=== PATIENT | female | born 1970 | race Caucasian/White ===

== ENCOUNTER 2022-03-30 13:49 | Outpatient (CLI) | payer OTHER, SELFPAY ==
--- NOTE | 2022-03-30 14:00 | CRLHL7_ITS ---
For Patients: As a result of the Century Cures Act, medical imaging exams and procedure reports are released immediately into your electronic medical record. You may view this report before your referring provider. If you have questions, please contact your health care provider. BILATERAL MAMMOGRAM WITH COMPUTER-AIDED DETECTION AND TOMOSYNTHESIS TECHNIQUE: CC and MLO views were obtained. These mammographic images have been obtained using full-field digital technique. These mammographic images were interpreted with the benefit of computer-aided detection. Breast Tomosynthesis was used in this interpretation. COMPARISON FILM: 01/06/2021, 06/29/2017, 05/13/2016. FINDINGS: There are scattered areas of fibroglandular density IMPRESSION: There is no radiographic evidence for malignancy. ASSESSMENT: BI-RADS Category 1: Negative RECOMMENDATION: Routine screening mammogram in 1 year. A lay language report of this examination will be provided to the patient. Howie Lorenzo M.D. Diagnostic Radiologist [email or web address] HORTENCIA/Dictated by: Howie Lorenzo MD @ 03/31/2022 12:55:00 PM (Electronically Signed)
== END 2022-03-30 13:50 | disposition home or self-care (01) ==
LOC: MAMMO 13:49
PROVIDERS: PCP Family Medicine; Visit Provider Family Medicine
DX: Z12.31 Encounter for screening mammogram for malignant neoplasm of breast (principal); R92.8 Other abnormal and inconclusive findings on diagnostic imaging of breast
CPT/HCPCS: 77063; 77067

== ENCOUNTER 2022-08-27 07:39 | Outpatient (CLI) | payer OTHER, SELFPAY ==
[2022-08-27 11:51] LABS: Albumin* 4.6 g/dL (3.3-5.0); Chloride* 104 mmol/L (96-114)
[2022-08-27 11:52] LABS: Potassium* 4.5 mmol/L (3.6-5.1); Sodium* 139 mmol/L (135-149)
[2022-08-27 11:54] LABS: Aspartate Amino Transferase* 32 U/L (12-35); Bilirubin Total* 0.5 mg/dL (0.1-1.5); Blood Urea Nitrogen* 17 mg/dL (7-30); Carbon Dioxide* 27 mmol/L (20-32); Cholesterol* 228 mg/dL (90-199); Creatinine* 0.6 mg/dL (0.5-1.5); Estimated Glomerular Filt Rate 108 ml/min; Total Protein* 6.9 g/dL (6.0-8.3)
[2022-08-27 11:55] LABS: Alanine Aminotransferase* 39 U/L (4-35); Alkaline Phosphatase* 79 U/L (40-150); Calcium* 8.9 mg/dL (8.4-10.6); Glucose* 102 mg/dL (60-115); HDL Cholesterol* 54 mg/dL (>=50); LDL Cholesterol Calculated 128 mg/dL (<100); Triglycerides* 231 mg/dL (40-149)
== END 2022-08-27 07:40 | disposition home or self-care (01) ==
LOC: NFLDREF 07:40
PROVIDERS: PCP Family Medicine; Visit Provider Family Medicine
DX: E78.5 Hyperlipidemia, unspecified (principal); Z13.9 Encounter for screening, unspecified
CPT/HCPCS: 80053; 80061

== ENCOUNTER 2023-05-23 14:39 | Outpatient (CLI) | payer OTHER, SELFPAY ==
--- NOTE | 2023-05-23 15:00 | CRLHL7_ITS ---
For Patients: As a result of the Century Cures Act, medical imaging exams and procedure reports are released immediately into your electronic medical record. You may view this report before your referring provider. If you have questions, please contact your health care provider. BILATERAL SCREENING MAMMOGRAM WITH COMPUTER-AIDED DETECTION AND TOMOSYNTHESIS TECHNIQUE: CC and MLO views were obtained. These mammographic images have been obtained using full-field digital technique. These mammographic images were interpreted with the benefit of computer-aided detection. Breast Tomosynthesis was used in this interpretation. COMPARISON FILM: 03/30/22, 01/06/21, 06/29/17. FINDINGS: There are scattered areas of fibroglandular density IMPRESSION: There is no radiographic evidence for malignancy. ASSESSMENT: BI-RADS Category 1: Negative RECOMMENDATION: Routine screening mammogram in 1 year. A lay language report of this examination will be provided to the patient. Howie Lorenzo M.D. Diagnostic Radiologist [email or web address] Transcribed: 2:49 pm DW/Dictated by: Howie Lorenzo MD @ 05/24/2023 1:10:00 PM (Electronically Signed)
== END 2023-05-23 14:40 | disposition home or self-care (01) ==
LOC: MAMMO 14:41
PROVIDERS: PCP Family Medicine; Visit Provider Family Medicine
DX: Z12.31 Encounter for screening mammogram for malignant neoplasm of breast (principal)
CPT/HCPCS: 77063; 77067

== ENCOUNTER 2023-11-21 07:43 | Outpatient (CLI) | payer OTHER, SELFPAY | END 2023-11-21 07:44 | disposition home or self-care (01) | LOC: NFLDREF 12-01 07:40 | PROVIDERS: PCP Family Medicine; Referring Provider Family Medicine; Visit Provider Family Medicine | DX: E78.5 Hyperlipidemia, unspecified (principal); I10 Essential (primary) hypertension | CPT/HCPCS: 80053; 80061 ==

== ENCOUNTER 2024-06-12 14:25 | Outpatient (CLI) | payer OTHER, SELFPAY ==
--- OUTSIDE RECORDS SUMMARY | 2024-06-12 14:27 | XMS_ITS | Encounter Summary ---
Author Organization [place] Address [address] [facility] [place] [address] Care Team Providers Care Credit Collections Clerk Name Role Phone Chasidy Patrick MD Primary Care Provid er Chasidy Patrick MD Unavailable + [phone] Chasidy Patrick MD Unavailable +1- [phone] Reason for Visit * Reason Onset Date Comments MyChart Communication 06/03/2016 Encounter Details Date Type Department Care Team (Late st Contact Info) Description 06/03/2016 My[facility] Medical Advice [address] [place] [address] Chasidy Patrick MD [facility] [place] [address] MyChart Communication Social History Tobacco Use Types Packs/Day Years Used Date Smoking Tobacco: Never Alcohol Use Standard Drinks/Week Comments Yes 0 (1 standard drink = 0.6 oz pur e alcohol) occ Sex and Gender Information Value Date Recorded Sex Assigned at Not on file Gender Identity Not on file Sexual Orientation Not on file documented as of this encounter Plan of Treatment Not on file documented as of this encounter Visit Diagnoses Not on filedocumented in this encounter Care Teams Credit Collections Clerk Relationship Specialty Start Date End Date Chasidy Patrick MD PCP - General 04/07/07 Chasidy Patrick MD [address] [place] [address] PCP - Assigned PCP 03/21/16 11/28/18 Chasidy Patrick MD [address] [place] [address] Assigned PCP 03/21/16 03/17/19 documented as of this encounter
--- OUTSIDE RECORDS SUMMARY | 2024-06-12 14:27 | XMS_ITS | Referral Summary ---
Author Organization [place] Address [address] [facility] [place] [address] Care Team Providers Care Criminal Justice Lawyer Name Role Phone Chasidy Patrick MD Primary Care Provid er Allergies Active Allergy Reactions Criticality Noted Date Comments Simvastatin 09/29/2007 Itching and rash Medications Medication Sig Dispensed Refills Start Date End Date Status MULTI-VITAMIN OR TABS 02/27/[address] Active Problems Problem Noted Date Diagnosed Date Family history of colon cancer 03/16/2016 Elevated blood pressure read ing without diagnosis of hypertension 03/16/2016 HYPERLIPIDEMIA LDL GOAL <130 07/26/2010 Contact dermatitis and other eczema, due to unspecified cause 11/22/2007 Mixed hyperlipidemia Overview: not on meds. Immunizations Name Administration Dates Next Due Influenza (IIV3) PF 07/27/2005 Influenza Vaccine >6 months,quad, PF 06/20/2017 TDAP Vaccine (Adacel) 08/17/2017 Social History Tobacco Use Types Packs/Day Years Used Date Smoking Tobacco: Never Alcohol Use Standard Drinks/Week Comments Yes 0 (1 standard drink = 0.6 oz pur e alcohol) occ PHQ-2 Answer Date Recorded PHQ-2 Score 0 10/11/2018 Adolescent Education Answer Date Record ed Getting School Help Needed Not on file 07/03 Sex and Gender Information Value Date Recorded Sex Assigned at Not on file Gender Identity Not on file Sexual Orientation Not on file Last Filed Vital Signs Vital Sign Reading Time Taken Comments Blood Pressure 100/66 06/22/2016 10:40 AM CDT Pulse 73 03/16/2016 8:32 AM CDT Temperature 36.8 ??C (98.3 ??F) 03/16/2016 8:32 AM CD T Respiratory Rate 16 06/22/2016 10:40 AM CDT Oxygen Saturation 99% 06/22/2016 10:40 AM CDT Inhaled Oxygen Concentration - - Weight 104.3 kg (230 lb) 06/22/2016 8:56 AM CDT Height 162.6 cm (5' 4) 06/22/2016 8:56 AM CDT Body Mass Index 39.48 06/22/2016 8:56 AM CDT Plan of Treatment Not on file Care Teams Criminal Justice Lawyer Relationship Specialty Start Date End Date Chasidy Patrick MD PCP - General 04/07/07
--- OUTSIDE RECORDS SUMMARY | 2024-06-12 14:27 | XMS_ITS | Encounter Summary ---
Author Organization [place] Address [address] [facility] [place] [place] [address] Care Team Providers Care First Aid Instructor Name Role Phone Chasidy Patrick MD Primary Care Provid er Chasidy Patrick MD Unavailable + [phone] Chasidy Patrick MD Unavailable + [phone] Encounter Details Date Type Department Care Team (Late st Contact Info) Description 07/14/2011 MyC Medical Advice [place] [address] [place] [address] Jaimee Whaley Social History Tobacco Use Types Packs/Day Years [...] on filedocumented in this encounter Care Teams First Aid Instructor Relationship Specialty Start Date End Date Chasidy Patrick MD PCP - General 04/07/07 Chasidy Patrick MD [address] [place] [address] PCP - Assigned PCP 03/21/16 11/28/18 Chasidy Patrick MD [address] [place] [id number] Assigned PCP 03/21/16 03/17/19 documented as of this encounter
--- OUTSIDE RECORDS SUMMARY | 2024-06-12 14:27 | XMS_ITS | Clinical Summary ---
Author Organization [place] Address [address] [facility] [place] [address] Care Team Providers Care Caster Helper Name Role Phone Chasidy Patrick MD Primary [...] months,quad, PF 06/20/2017 TDAP Vaccine (Adacel) 08/17/2017 Family History Medical History Relation Comments Lipids Father C.A.D. Maternal Grandfather diabetes Cancer - colorectal Paternal Grandfather Relation Status Comments Father Maternal Grandfather Paternal Grandfather Social History Tobacco Use Types Packs/Day Years [...] of Treatment Not on file Care Teams Caster Helper Relationship Specialty Start Date End Date Chasidy Patrick MD PCP - General 04/07/07
--- NOTE | 2024-06-12 14:40 | CRLHL7_ITS ---
For Patients: As a result of the Century Cures Act, medical imaging exams and procedure reports are released immediately into your electronic medical record. You may view this report before your referring provider. If you have questions, please contact your health care provider. BILATERAL SCREENING MAMMOGRAM WITH COMPUTER-AIDED DETECTION AND TOMOSYNTHESIS TECHNIQUE: CC and MLO views were obtained. These mammographic images have been obtained using full-field digital technique. These mammographic images were interpreted with the benefit of computer-aided detection. Breast Tomosynthesis was used in this interpretation. COMPARISON FILM: 05/23/23, 03/30/22, 01/06/21. FINDINGS: There are scattered areas of fibroglandular density. IMPRESSION: There is no radiographic evidence for malignancy. ASSESSMENT: BI-RADS Category 1: Negative RECOMMENDATION: Routine screening mammogram in 1 year. A lay language report of this examination will be provided to the patient. Howie Lorenzo M.D. Diagnostic Radiologist [email or web address] SP/Dictated by: Howie Lorenzo MD @ 06/13/2024 9:36:00 AM (Electronically Signed)
== END 2024-06-12 14:26 | disposition home or self-care (01) ==
LOC: MAMMO 14:25
PROVIDERS: PCP Family Medicine; Visit Provider Family Medicine
DX: Z12.31 Encounter for screening mammogram for malignant neoplasm of breast (principal)
CPT/HCPCS: 77063; 77067

== ENCOUNTER 2024-11-21 07:44 | Outpatient (CLI) | payer OTHER, SELFPAY | END 2024-11-21 07:45 | disposition home or self-care (01) | LOC: NFLDREF 11-22 08:55 | PROVIDERS: PCP Family Medicine; Referring Provider Family Medicine; Visit Provider Family Medicine | DX: M81.0 Age-related osteoporosis without current pathological fracture (principal); I10 Essential (primary) hypertension; E78.5 Hyperlipidemia, unspecified; E55.9 Vitamin D deficiency, unspecified; R79.89 Other specified abnormal findings of blood chemistry | CPT/HCPCS: 80053; 80061; 82306 ==

== ENCOUNTER 2025-06-13 13:07 | Outpatient (CLI) | payer OTHER, SELFPAY ==
--- NOTE | 2025-06-13 13:20 | CRLHL7_ITS ---
For Patients: As a result of the Century Cures Act, medical imaging exams and procedure reports are released immediately into your electronic medical record. You may view this report before your referring provider. If you have questions, please contact your health care provider. INDICATION: BILATERAL SCREENING MAMMOGRAM, ASYMPTOMATIC 55 Y/O FEMALE COMPARISON: 06/12/2024, 05/23/2023, 03/30/2022 TECHNIQUE: Digital mammogram in CC and MLO projections including computer-aided detection (CAD) and tomosynthesis. BREAST COMPOSITION: The breasts are almost entirely fatty. FINDINGS: No suspicious findings. ASSESSMENT: BI-RADS 1 Negative RECOMMENDATION: Annual screening mammogram. A lay language report of this examination will be provided to the patient. Dictated by: Howie Lorenzo MD @ 06/14/2025 09:55:45 (Electronically Signed)
== END 2025-06-13 13:08 | disposition home or self-care (01) ==
LOC: MAMMO 13:07
PROVIDERS: PCP Family Medicine; Visit Provider Family Medicine
DX: Z12.31 Encounter for screening mammogram for malignant neoplasm of breast (principal)
CPT/HCPCS: 77063; 77067

== ENCOUNTER 2025-07-14 09:26 | Emergency (ER) | payer OTHER, SELFPAY ==
[2025-07-14] VITALS (11 sets, daily range): BP systolic 140–169; BP diastolic 79–97; PULSE 65–75; RESP 18; TEMP 37.1; O2SAT 91–97; BMI 36.0
--- OUTSIDE RECORDS SUMMARY | 2025-07-14 09:27 | XMS_ITS | Clinical Summary ---
Author Organization [place] Address [address] [facility] [place] [address] Care Team Providers Care Counter Supervisor Name Role Phone Chasidy Patrick MD Primary Care Provid er Allergies Active Allergy Reactions Criticality Noted Date Comments Simvastatin 09/29/2007 Itching and rash Medications MULTI-VITAMIN OR TABS 02/27/2002 Active Active Problems Problem Noted Date Diagnosed Date Family history of colon cancer 03/16/2016 Elevated blood pressure read ing without diagnosis of hypertension 03/16/2016 HYPERLIPIDEMIA LDL GOAL <130 07/26/2010 Contact dermatitis and other eczema, due to unspecified cause 11/22/2007 Mixed hyperlipidemia Overview (04/17/2007): not on meds. 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 Gender Identity Not on file Sexual Orientation Not on file Last Filed Vital Signs Vital Sign Reading Time Taken Comments Blood Pressure 100/66 06/22/2016 10:40 AM CDT Pulse 73 03/16/2016 8:32 AM CDT Temperature 36.8 C (98.3 F) 03/16/2016 8:32 AM CDT Respiratory Rate 16 06/22/2016 10:40 AM CDT Oxygen Saturation 99% 06/22/2016 10:40 AM CDT Inhaled Oxygen Concentration - - Weight 104.3 kg (230 lb) 06/22/2016 8:56 AM CDT Height 162.6 cm (5' 4) 06/22/2016 8:56 AM CDT Body Mass Index 39.48 06/22/2016 8:56 AM CDT Plan of Treatment Not on file Insurance [facility] Care Teams Counter Supervisor Relationship Specialty Start Date End Date Chasidy Patrick MD PCP - General 04/07/07
--- OUTSIDE RECORDS SUMMARY | 2025-07-14 09:27 | XMS_ITS | Encounter Summary ---
Author Organization [place] Address [address] [facility] [place] [address] Care Team Providers Care Tab Builder Name Role Phone Chasidy Patrick MD Primary Care Provid er Chasidy Patrick MD Unavailable +- [phone] Chasidy Patrick MD Unavailable [phone]- [phone] Reason for Visit * Reason Onset Date Comments MyChart Communication 06/03/2016 Encounter Details Date Type Department Care Team (Late st Contact Info) Description 06/03/2016 MyC Medical Advice [address] [place] [address] Chasidy Patrick MD [address] [place] [address] MyChart Communication Social History Tobacco Use Types Packs/Day Years Used Date Smoking Tobacco: Never Alcohol Use Standard Drinks/Week Comments Yes 0 (1 standard drink = 0.6 oz pur e alcohol) occ Comments Unknown Sex and Gender Information Value Date Recorded Sex Assigned at Not on file 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
--- OUTSIDE RECORDS SUMMARY | 2025-07-14 09:27 | XMS_ITS | Encounter Summary ---
Author Organization [place] Address [address] [facility] [place] [address] Care Team Providers Care Etl Consultant Name Role Phone Chasidy Patrick MD Primary Care Provid er Chasidy Patrick MD Unavailable + [phone] Chasidy Patrick MD Unavailable + [phone] Encounter Details Date Type Department Care Team (Late st Contact Info) Description 07/14/2011 [facility] Medical Advice [facility] [address] [place] [address] Jaimee Whaley Social History Tobacco Use Types Packs/Day Years Used Date Smoking Tobacco: Never Alcohol Use Standard Drinks/Week Comments Yes 0 (1 standard drink = 0.6 oz pur e alcohol) occ Comments No Sex and Gender Information Value Date Recorded Sex Assigned at Not on file 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
--- NOTE | 2025-07-14 11:09 | CRLHL7_ITS ---
For Patients: As a result of the Cures Act, medical imaging exams and procedure reports are released immediately into your electronic medical record. You may view this report before your referring provider. If you have questions, please contact your health care provider. INDICATION: Right lower flank/quadrant pain. TECHNIQUE: Axial intravenously infused CT cuts were performed from above diaphragm to below the ischial tuberosities with the infusion of 103 mL of Isovue-370. COMPARISON: None. FINDINGS: The far lateral portion of the left side of the abdomen is excluded from the field of view. There is a mild right perinephric edema with decreased definition of the medullary pyramids compared to the contralateral kidney which is suspicious for mild acute pyelonephritis. No urinary tract calculi are identified. The left kidney appears normal. The liver, spleen, pancreas and adrenal glands appear normal. There are no enlarged lymph nodes within the retroperitoneum or mesentery. The colon and small bowel appear normal. The appendix is not inflamed. The uterus appears normal. There is no iliac or inguinal lymphadenopathy. There are no nodules or masses the lung bases. There are no lytic or sclerotic skeletal lesions. IMPRESSION: Mild right pyelonephritis is suspected appear. Please note that all CT scans at this facility use dose modulation, iterative reconstruction, and/or weight-based dosing when appropriate to reduce radiation dose to as low as reasonably achievable. Dictated by Enrike Ferris MD @ 07/14/2025 12:28:52 PM (Electronically Signed)
--- NOTE | 2025-07-14 11:10 | ED.GENADULT ---
HPI - General Adult General Date Seen: 07/14/25 Chief complaint: Back Injury/Pain Stated complaint: R lower back pain, radiating towards hip Time Seen by Provider: 07/14/25 10:55 Source: patient Mode of arrival: ambulatory Limitations: no limitations History of Present Illness HPI narrative: Patient is a 55-year-old female presenting to emergency department for right low flank and right lower quadrant abdominal pain. She states last week she did some yd work and for the few days after that she is feeling right lower back pain that felt musculoskeletal in nature. She states she thought she just over did it and pain seem to be getting better. Yesterday she states she was getting out of her car when she felt like she heard a pop and pain got notably worse. The pain is very sharp she states feels deeper than it did earlier in the week. Patient states she vomited once due to the pain. Describes the pain as sharp. Nothing seems to be making it better or worse. Does not notice any changes in pain with movement. Pain radiates to her right lower abdomen. Denies ever having pain like this before. Denies fevers, chills, chest pain, shortness of breath, hematuria, dysuria, headache, vision changes, diarrhea, constipation. No previous abdominal surgeries. States she is currently feeling nauseated. Related Data Home Medications ?Medication ?Instructions ?Recorded ?Confirmed cholecalciferol (vitamin D3) 25 25 mcg PO QDAY 11/10/22 11/27/24 mcg (1,000 unit) tablet fluocinonide 0.05 % topical gel 1 applic topical BID-QID PRN 11/10/22 11/27/24 ketoconazole 2 % topical cream 1 applic topical QDAY 11/10/22 11/27/24 multivitamin with iron (Daily 1 tab PO QDAY 11/10/22 11/27/24 Multiple Vitamins with Iron tablet) triamcinolone acetonide 0.1 % 1 applic topical QDAY 11/10/22 11/27/24 topical cream Previous Rx's ?Medication ?Instructions ?Recorded lisinopril 20 mg tablet 20 mg PO QDAY #90 tabs 11/27/24 rosuvastatin 10 mg tablet 10 mg PO QDAY #90 tabs 11/27/24 semaglutide (weight loss) 2.4 2.4 mg (0.75 mL) subcut QWEEK #3 mL 11/27/24 mg/0.75 mL subcutaneous pen injector ([place]) Allergies Allergy/AdvReac Type Severity Reaction Status Date / Time simvastatin AdvReac Intermediate Itching Verified 11/27/24 07:18 Review of Systems Status of ROS: Reports: 10 or more systems reviewed and unremarkable except as noted in History and below PFSH PFSH Medical History Morbid obesity with body mass index (BMI) of 40.0 to 44.9 in adult ?E66.01 - Morbid (severe) obesity due to excess calories (ICD-10) ?Z68.41 - Body mass index [BMI] 40.0-44.9, adult (ICD-10) Psoriasis ?L40.9 - Psoriasis, unspecified (ICD-10) Hypertension ?I10 - Essential (primary) hypertension (ICD-10) Dyslipidemia ?E78.5 - Hyperlipidemia, unspecified (ICD-10) Surgical History History of surgical removal of ganglion cyst (1989) ?Z98.890 - Other specified postprocedural states (ICD-10) Family History Mother Aortic stenosis Father Lewy body dementia Maternal Grandfather Diabetes Paternal Grandfather Colon cancer, Onset Age: 80 Other Dementia 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: , 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, 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 Walks 2-3 a week, plans strength training non-smoker social drinker- 4/week What is your current living situation?: I presently have a place to live Problems where you live: no known problems In the past 12 months, utilities in danger of being shut off: no In past 12 months, lack of transportation kept you from medical appts, meetings, work, or getting things needed for daily living: no In the past 12 mos, have been you worried that your food would run out before you had money to buy more?: never true In the past 12 mos, the food you bought just didn't last and you didn't have money to buy more?: never true Smoking Status: Never smoker How often does anyone, including family, friends and others, physically hurt you: never How often does anyone, including family, friends and others, insult or talk down to you: never How often does anyone, including family, friends and others, threaten you with harm: never How often does anyone, including family, friends and others, scream or curse at you: never Exam Narrative: Exam Narrative: Const: Well-nourished, Well-developed, in moderate distress Eyes: PERRL, no conjunctival injection, and symmetrical lids HENT: Atraumatic external nose and ears. Moist mucous membranes. Neck: Symmetric, trachea midline, No thyromegaly. CVS: RRR, No murmurs or gallops. Peripheral pulses 2+ and equal in all extremities RESP: Unlabored respiratory effort. Clear to auscultation bilaterally. GI: Right lower quadrant tenderness, Nondistended, No rebound or guarding. MSK:Extremities w/o deformity, Normal Active ROM, mild right low back tenderness that does not reproduce her pain. Skin: Warm, Dry. No rashes or lesions. Neuro: Normal Muscle tone, No focal neurological deficits. Psych: Awake, Alert, & Oriented x3. Appropriate mood and affect. Const: Vital Signs, click to edit/add: Vital Signs - 24 hr 07/14/25 09:50 Temperature 98.8 F Pulse Rate [Pulse Oximeter] 72 Respiratory Rate 18 Blood Pressure [Ri ght Upper Arm] 169/97 H Pulse Oximetry 97 Oxygen Delivery Me thod Room Air Course Vital Signs Vital signs: Initial Vital Signs Temperature 98.8 F 07/14/25 09:50 Temperature Source Temporal Artery Scan 07/14/25 09:50 Pulse Rate 72 07/14/25 09:50 Respiratory Rate 18 07/14/25 09:50 Blood Pressure 169/97 H 07/14/25 09:50 Blood Pressure Mean 121 H 07/14/25 09:50 Pulse Oximetry 97 07/14/25 09:50 Oxygen Delivery Method Room Air 07/14/25 09:50 Vital Signs Temperature 98.8 F 07/14/25 09:50 Pulse Rate 72 07/14/25 09:50 Respiratory Rate 18 07/14/25 09:50 Blood Pressure 169/97 H 07/14/25 09:50 Pulse Oximetry 97 07/14/25 09:50 Oxygen Delivery Method Room Air 07/14/25 09:50 Temperature 98.8 F 07/14/25 09:50 Pulse Rate 72 07/14/25 09:50 Respiratory Rate 18 07/14/25 09:50 Blood Pressure 169/97 H 07/14/25 09:50 Pulse Oximetry 97 07/14/25 09:50 Oxygen Delivery Method Room Air 07/14/25 09:50 Medications Administered Medications: Discontinued Medications Generic Name Dose Route Start Last Admin Trade Name Stephany PRN Reason Stop Dose Admin Morphine Sulfate 4 mg 07/14/25 11:08 07/14/25 11:24 Morphine 4 Mg/Ml Inj IVP 07/14/25 11:09 4 mg ONCE ONE Administration Ondansetron HCl 4 mg 07/14/25 11:08 07/14/25 11:23 Ondansetron 2 Mg/Ml Inj IVP 07/14/25 11:09 4 mg ONCE ONE Administration Medical Decision Making MDM Narrative Medical decision making narrative: Patient is a 55-year-old female presenting for right low back and right lower quadrant abdominal pain. Based on her history this very well could be musculoskeletal but I am concerned for a possible urolithiasis. Since the pain does radiate to her right lower quadrant and does have tenderness there I will do CT scan with IV contrast also look for appendicitis. This also help evaluate any other possible intra-abdominal abnormalities. Based on the location is seems unlikely to be pancreatitis, diverticulitis, gallbladder/liver disease. Is not having any pelvic pain and I do not believe this is an ovarian torsion. Will give morphine for pain and Zofran for nausea. Will also order CBC, CMP, urinalysis. Patient is feeling better after the medication. Lab work is not overtly concerning. There are some leukocyte esterases and few bacteria and the urine. CT scan of the abdomen pelvis reviewed by myself and the radiologist does show some perinephric stranding which can be a sign of pyelonephritis. Considering everything I will treat her as a right pyelonephritis. She was doing well this time and is safe for discharge. She is agreeable to this plan. I will send her home with Zofran for nausea and oxycodone for pain also. Lab Data Labs: Lab Results 07/14/25 07/14/25 Range/Units 11:09 11:25 WBC 7.09 (4.50-11.00) K/uL RBC 5.07 (4.00-5.20) m/uL Hgb 14.8 (12.0-16.0) gm/dL Hct 42.3 (33.0-51.0) % MCV 83 (80-100) fL MCH 29 (26-34) pg MCHC 35 (32-36) gm/dL RDW Coeff of [place] 11.8 (11.5-15.5) % Plt Count 196 (140-440) K/uL Neut % (Auto) 79.8 H (42.0-72.0) % Lymph % (Auto) 15.4 L (20-44) % [place] % (Auto) 4.5 (0.0-11.0) % Eos % (Auto) 0.1 (0.0-7.0) % Baso % (Auto) 0.1 (0.0-3.0) % Neut # (Auto) 5.70 (1.7-7.0) K/uL Lymph # (Auto) 1.10 (0.90-2.90) K/uL [place] # (Auto) 0.30 (0.00-0.90) K/UL Eos # (Auto) 0.01 (0.00-0.50) K/uL Baso # (Auto) 0.01 (0.00-0.30) K/uL Abs Immat Gran (auto) 0.01 (0.00-0.30) K/uL Imm/Tot Granulo (auto) 0.1 % Sodium 135 (135-149) mmol/L Potassium 3.8 (3.6-5.1) mmol/L Chloride 100 (96-114) mmol/L Carbon Dioxide 28 (20-32) mmol/L Anion Gap 7 (7-15) mEq/L BUN 16 (7-30) mg/dL Creatinine 0.7 (0.5-1.5) mg/dL Estimated Creat Clear 78.41 Estimated GFR 102 ml/min Glucose 100 (60-115) mg/dL Calcium 9.3 (8.4-10.6) mg/dL Total Bilirubin 0.7 (0.1-1.5) mg/dL AST 33 (12-35) U/L ALT 28 (4-35) U/L Alkaline Phosphatase 72 (40-150) U/L Total Protein 7.8 (6.0-8.3) g/dL Albumin 4.9 (3.3-5.0) g/dL Urine Color Yellow (Yellow) Urine Appearance Clear (Clear) Urine pH 7.0 (5.0-8.5) Ur Specific [place] 1.015 (1.000-1.030) Urine Protein Negative (Negative) Urine Glucose (UA) Negative (Negative) Urine Ketones Negative (Negative) Urine Blood Negative (Negative) Urine Nitrite Negative (Negative) Urine Bilirubin Negative (Negative) Urine Urobilinogen 0.2 (0.2-1.0) Ur Leukocyte Esterase Trace A (Negative) Urine RBC 0-2 (0-2) Urine WBC 2-5 (0-5) Ur Squamous Epith Cells Few (None-Few) Other Sediment FEW YEAST (None) Urine Bacteria Few A (None) Imaging Data CT scan abdomen and pelvis: Attestation: I have reviewed the pertinent imaging results. Radiologist's impression: Mild right pyelonephritis is suspected appear. Please note that all CT scans at this facility use dose modulation, iterative reconstruction, and/or weight-based dosing when appropriate to reduce radiation dose to as low as reasonably achievable. Dictated by Enrike Ferris MD @ 07/14/2025 12:28:52 PM Discharge Plan Discharge Clinical Impression: Pyelonephritis of right kidney Patient Disposition: Home, Self-Care Condition: Improved Instructions: Kidney Infection (ED) Additional Instructions: Use ibuprofen as needed for pain. That is not helping use Percocet. Take Zofran as needed for nausea. Take the antibiotics as directed. Return to emergency department for new or worsening symptoms Prescriptions: No Action multivitamin with iron [Daily Multiple Vitamins/Iron] Tablet 1 tab PO QDAY cholecalciferol (vitamin D3) 25 mcg (1,000 unit) tablet 25 mcg PO QDAY triamcinolone acetonide 0.1 % cream 1 applic topical QDAY ketoconazole 2 % cream 1 applic topical QDAY fluocinonide 0.05 % gel 1 applic topical BID-QID PRN [place] 2.4 mg/0.75 mL pen injector 2.4 mg subcut QWEEK Qty: 3 12RF rosuvastatin 10 mg tablet 10 mg PO QDAY Qty: 90 3RF lisinopril 20 mg tablet 20 mg PO QDAY Qty: 90 3RF Follow Up/Referrals: Grace Berman MD [Primary Care Provider, Family Practice] Stand Alone Forms: [employer] Info Instructions
[2025-07-14] MEDS: ONDANSETRON 2 MG/ML inj 4 MG IVP (11:23)
[2025-07-14] MEDS: MORPHINE 4 MG/ML INJ IVP (11:24)
[2025-07-14 11:37] LABS: Hematocrit* 42.3 % (33.0-51.0); Hemoglobin* 14.8 gm/dL (12.0-16.0); Immature Granulocytes Abs Auto 0.01 K/uL (0.00-0.30); Immature Granulocytes Pct Auto 0.1 %; Mean Corpuscular HGB Conc 35 gm/dL (32-36); Mean Corpuscular Hemoglobin 29 pg (26-34); Mean Corpuscular Volume 83 fL (80-100); RDW Coefficient of Variation % 11.8 % (11.5-15.5); Red Blood Count* 5.07 m/uL (4.00-5.20); White Blood Count* 7.09 K/uL (4.50-11.00)
[2025-07-14 11:38] LABS: Lymphocytes Absolute Auto 1.10 K/uL (0.90-2.90); Slide Review Reflex No
[2025-07-14 11:55] LABS: Albumin* 4.9 g/dL (3.3-5.0); Chloride* 100 mmol/L (96-114); Potassium* 3.8 mmol/L (3.6-5.1); Sodium* 135 mmol/L (135-149)
[2025-07-14 11:57] LABS: Blood Urea Nitrogen* 16 mg/dL (7-30); Creatinine* 0.7 mg/dL (0.5-1.5); Est. Creatinine Clearance* 78.41
[2025-07-14 11:58] LABS: Alanine Aminotransferase* 28 U/L (4-35); Alkaline Phosphatase* 72 U/L (40-150); Anion Gap 7 mEq/L (7-15); Aspartate Amino Transferase* 33 U/L (12-35); Bilirubin Total* 0.7 mg/dL (0.1-1.5); Calcium* 9.3 mg/dL (8.4-10.6); Carbon Dioxide* 28 mmol/L (20-32); Estimated Glomerular Filt Rate 102 ml/min; Glucose* 100 mg/dL (60-115); Total Protein* 7.8 g/dL (6.0-8.3)
[2025-07-14 12:01] LABS: Appearance Urine Clear (Clear)
[2025-07-14 12:21] LABS: Other Sediment Urine FEW YEAST
== END 2025-07-14 13:05 | disposition home or self-care (01) ==
PROVIDERS: Emergency Provider Student in an Organized Health Care Education/Training Program; PCP Family Medicine
DX: N10 Acute pyelonephritis (principal)
CPT/HCPCS: 36415; 74177; 80053; 81001; 85025; 87086; 96374; 96375; 99284; J2270; J2405; Q9967

== ENCOUNTER 2025-07-25 06:59 | Outpatient (CLI) | payer OTHER, SELFPAY ==
--- NOTE | 2025-07-25 07:15 | CRLHL7_ITS ---
For Patients: As a result of the Century Cures Act, medical imaging exams and procedure reports are released immediately into your electronic medical record. You may view this report before your referring provider. If you have questions, please contact your health care provider. Indication: Lumbago with sciatica, right side Technique: Multiplanar, multisequence, MRI of the lumbar spine, obtained without contrast. Comparison: Lumbar spine x-ray 07/23/2025 Findings: The lumbar lordosis is preserved. No significant spondylolisthesis. Vertebral body heights are grossly maintained. No evidence of acute fracture or focal compression deformity. Bone marrow signal appears within normal limits. The conus medullaris terminates at approximately L1-2. No suspicious findings in the prevertebral and paraspinal soft tissues. Included SI joints are unremarkable. T12-L1 through L2-L3: No neural foraminal or spinal canal stenosis. L3-L4: Mild right eccentric disc bulge. No left, mild right neural foraminal narrowing. No spinal canal stenosis. L4-L5: Mild disc bulge, mild facet arthropathy. No left, mild-moderate right neural foraminal narrowing. No spinal canal stenosis. L5-S1: Minimal disc bulge, moderate facet arthropathy. Presumed left synovial cyst encroaching upon but not impinging the exiting left L5 nerve root. No right neural foraminal or spinal canal stenosis. Impression: 1. Lower lumbar spondylosis as detailed. 2. At L3-L4, mild right neural foraminal narrowing. 3. At L4-L5, mild-moderate right neural foraminal narrowing. 4. At L5-S1, small presumed synovial cyst encroaching upon but not impinging the exiting left L5 nerve root. Dictated by Josephine Dumont MD @ 07/25/2025 1:39:39 PM (Electronically Signed)
== END 2025-07-25 07:00 | disposition home or self-care (01) ==
LOC: MRI 06:59
PROVIDERS: PCP Family Medicine; Visit Provider Family Medicine
DX: M54.41 Lumbago with sciatica, right side (principal); M51.26 Other intervertebral disc displacement, lumbar region; M51.27 Other intervertebral disc displacement, lumbosacral region
CPT/HCPCS: 72148

== ENCOUNTER 2025-07-30 13:31 | Outpatient (CLI) | payer OTHER, SELFPAY | END 2025-07-30 13:32 | disposition home or self-care (01) | LOC: INJ CL 13:32 | PROVIDERS: PCP Family Medicine; Visit Provider Family Medicine | DX: M54.16 Radiculopathy, lumbar region (principal); M51.26 Other intervertebral disc displacement, lumbar region | CPT/HCPCS: 64483; 64484; J1100; Q9966 ==

== ENCOUNTER 2025-09-23 12:43 | Outpatient (CLI) | payer OTHER, SELFPAY | END 2025-09-23 12:44 | disposition home or self-care (01) | LOC: RAD 12:46 | PROVIDERS: PCP Family Medicine; Visit Provider Family Medicine | DX: I35.1 Nonrheumatic aortic (valve) insufficiency (principal); Z82.79 Family history of other congenital malformations, deformations and chromosomal abnormalities | CPT/HCPCS: 93306 ==